=== PATIENT | female | born 1975 | race Two or more races ===

== ENCOUNTER 2016-10-10 02:15 | Emergency (ER) | payer MEDICAID ==
[2016-10-10 02:40] LABS: SPECIFIC GRAVITY 1.025 (1.001-1.030); URINE BILIRUBIN NEGATIVE (NEGATIVE); URINE BLOOD 2+ (NEGATIVE); URINE GLUCOSE (UA) NEGATIVE (NEGATIVE); URINE LEUKOCYTE ESTERASE NEGATIVE (NEGATIVE); URINE NITRITE NEGATIVE (NEGATIVE); URINE PROTEIN TRACE (NEGATIVE); URINE UROBILINOGEN 1 mg/dL (0-1 mg/dl)
[2016-10-10 02:41] LABS: URINE APPEARANCE CLEAR; URINE COLOR YELLOW
[2016-10-10] MEDS ORDERED: ONDANSETRON 4 MG/2ML 2 ML VIAL ONE (02:42)
[2016-10-10] MEDS ORDERED: MORPHINE SULFATE 4 MG/ML SYRINGE ONE (02:42)
[2016-10-10 02:43] LABS: HCG,QUALITATIVE URINE NEGATIVE
[2016-10-10] MEDS ORDERED: FAMOTIDINE 10 MG/ML 2ML VIAL ONE (02:43)
[2016-10-10 02:50] LABS: URINE BACTERIA 0
[2016-10-10 03:15] LABS: ABSOLUTE NEUTROPHIL COUNT 6.7 K/mm3 (1.8-7.7); BASO # 0.1 K/mm3 (0.0-0.2); BASO % 0.5 % (0.2-1.0); EOS # 0.2 (0.0-0.5); EOS % 1.6 % (0.9-2.9); HEMATOCRIT 39.2 % (37.0-47.0); HEMOGLOBIN 13.4 gm/l (12.0-16.0); IMM NEUT% 0.2 % (0-1); LYMPH # 2.4 (1.0-4.8); LYMPH % 23.8 % (15-45); MEAN CELL VOLUME 88.7 fl (81.0-99.0); MEAN CORPUSCULAR HEMOGLOBIN 30.3 pg (27.0-31.0); MEAN CORPUSCULAR HGB CONC 34.2 g/dl (33.0-37.0); MEAN PLATELET VOLUME 11.2 fl (7.4-10.4); MONO # 0.7 (0.0-0.8); MONO % 6.6 % (4-12); NEUT % 67.3 % (43-75); PLATELET COUNT 272 K/mm3 (130-400); RED CELL DISTRIBUTION WIDTH 13.3 % (11.5-14.5)
[2016-10-10 03:30] LABS: ALB/GLOB RATIO 1.3 (>1.0); ALBUMIN 4.4 gm/dL (3.5-5.7); CALCIUM 9.6 mg/dL (8.6-10.3)
[2016-10-10] MEDS ORDERED: MAALOX/LIDO2%VISC/SIMETHICONE 40 ML BOT ONE (04:12)
--- NOTE | 2016-10-10 07:34 | US ---
Exam: Gallbladder ultrasound COMPARISON: None INDICATION: Right upper quadrant pain and nausea. FINDINGS: Gallbladder ultrasound was obtained. Examination is slightly limited due to patient body habitus. Solitary gallstone was identified. There is no gallbladder wall thickening or pericholecystic fluid. There was a negative sonographic Rios's sign. Common bile duct normal at 3 mm. IMPRESSION: Cholelithiasis without sonographic features of acute cholecystitis or biliary ductal dilation. Preliminary report transmitted to the emergency department from [facility] at 0403 hours 10/10/2016.
== END 2016-10-10 04:50 | disposition home or self-care (01) ==
LOC: ED 02:15
DX: K80.20 Calculus of gallbladder without cholecystitis without obstruction (principal); K80.80 Other cholelithiasis without obstruction; I10 Essential (primary) hypertension
CPT/HCPCS: 83690; 81025; 85025; 80053; 81001; 76705; 96375 ×2; 99283 ×2; 96374; A9270; J2270; J2405